=== PATIENT | male | born 1965 | race African-American/Black ===

== ENCOUNTER 2022-04-30 11:43 | Inpatient (IN) | payer OTHER ==
[2022-04-30 12:04] VITALS: BMI 29.9
[2022-04-30] MEDS ORDERED: NALOXONE HCL (KLOXXADO) 8 MG SPRAY NS PRN (13:18)
[2022-04-30] MEDS ORDERED: ONDANSETRON *ODT* 4 MG TABLET SL PRN (13:18)
[2022-04-30] MEDS ORDERED: IBUPROFEN 600 MG TABLET (FP) PO PRN (13:18)
[2022-04-30] MEDS ORDERED: hydrOXYzine PAMOATE 25 MG CAPSULE (FP) PO PRN (13:18)
[2022-04-30] MEDS ORDERED: DICYCLOMINE HCL 10 MG CAPSULE PO PRN (13:18)
[2022-04-30] MEDS ORDERED: POLYETHYLENE GLYCOL (HEALTHYLAX) 3350 17 GM PACKET PO PRN (13:18)
[2022-04-30] MEDS ORDERED: BISMUTH SUBSALICYLATE 524 MG/30 ML PO PRN (13:18)
[2022-04-30] MEDS ORDERED: ACETAMINOPHEN 325 MG TABLET (FP) PO PRN ×2 (13:18)
[2022-04-30] MEDS ORDERED: BENZOCAINE/MENTHOL (CHLORASEPTIC ) LOZENGE MM PRN (13:18)
[2022-04-30] MEDS ORDERED: cloNIDine HCL 0.1 MG TABLET PO PRN (13:18)
[2022-04-30] MEDS ORDERED: LOPERAMIDE HCL 2 MG CAPSULE PO PRN (13:18)
[2022-04-30] MEDS ORDERED: MAGNESIUM HYDROX 2400MG/30ML ORAL SUSPENSION 30 ML CUP PO PRN (13:18)
[2022-04-30] MEDS ORDERED: IBUPROFEN 400 MG TABLET (FP) PO PRN (13:18)
[2022-04-30] MEDS ORDERED: MAG HYDROX/AL HYDROX/SIMETH 30 ML UNIT-DOSE CUP PO PRN (13:18)
[2022-04-30] MEDS ORDERED: methaDONE HCL 10 MG TABLET (FOR DETOX USE ONLY) PO ONE ×2 (13:45→15:30)
[2022-04-30] MEDS: METHOCARBAMOL 500 MG TABLET PO PRN (14:57)
[2022-04-30] MEDS: PRENATAL VITAMINS W/ FOLIC ACID TABLET (FP) PO SCH (15:00)
[2022-04-30] MEDS: NICOTINE POLACRILEX 4 MG GUM BUC PRN (15:49)
[2022-04-30 17:17] LABS: ALBUMIN 3.7 g/dl (3.4-5.0); BLOOD UREA NITROGEN 20.5 mg/dL (7-18); CALCIUM 9.2 mg/dL (8.5-10.1)
[2022-04-30 17:20] LABS: CREATININE 1.3 mg/dL (0.55-1.3)
[2022-04-30 17:22] LABS: BILIRUBIN,TOTAL 0.3 mg/dL (0.2-1); TOT PROT 7.8 g/dl (6.4-8.2)
[2022-04-30 17:23] LABS: HEMATOCRIT 40.3 % (35.4-49); HEMOGLOBIN 12.7 GM/dL (11.7-16.9); MCH 23.9 pg (25.7-33.7); MCHC 31.6 g/dl (32.0-35.9); MEAN CELL VOLUME 75.8 fl (80-96); MEAN PLT VOLUME 9.9 fl (7.5-11.1); PLATELET COUNT 165 10^3/uL (134-434); RBC 5.32 M/mm3 (4.00-5.60); RDW 17.7 % (11.9-15.9); WHITE BLOOD COUNT 5.4 K/mm3 (4.0-10.0)
[2022-04-30] MEDS: MELATONIN 5 MG TABLETS PO SCH (22:26)
[2022-04-30] MEDS: THIAMINE HCL 100 MG TABLET (FP) PO SCH (22:26)
[2022-05-01] MEDS: PRENATAL VITAMINS W/ FOLIC ACID TABLET (FP) PO SCH (10:29)
[2022-05-01] MEDS: METHOCARBAMOL 500 MG TABLET PO PRN ×2 (10:30→22:27)
[2022-05-01] MEDS: NICOTINE POLACRILEX 4 MG GUM BUC PRN ×2 (11:58→22:28)
[2022-05-01] MEDS: NICOTINE 10 MG CARTRIDGE (INHALER) IH PRN (17:13)
[2022-05-01] MEDS: THIAMINE HCL 100 MG TABLET (FP) PO SCH (22:27)
[2022-05-01] MEDS: MELATONIN 5 MG TABLETS PO SCH (22:27)
[2022-05-02] MEDS ORDERED: methaDONE HCL 10 MG TABLET (FOR DETOX USE ONLY) PO ONE (10:00)
[2022-05-02] MEDS: PRENATAL VITAMINS W/ FOLIC ACID TABLET (FP) PO SCH (10:15)
[2022-05-02] MEDS: METHOCARBAMOL 500 MG TABLET PO PRN (10:17)
[2022-05-02] MEDS: NICOTINE POLACRILEX 4 MG GUM BUC PRN ×2 (10:20→21:36)
[2022-05-02] MEDS: MELATONIN 5 MG TABLETS PO SCH (22:19)
[2022-05-02] MEDS: THIAMINE HCL 100 MG TABLET (FP) PO SCH (22:19)
[2022-05-03] MEDS: PRENATAL VITAMINS W/ FOLIC ACID TABLET (FP) PO SCH (09:35)
[2022-05-03] MEDS: NICOTINE POLACRILEX 4 MG GUM BUC PRN ×3 (12:26→22:13)
[2022-05-03] MEDS: NICOTINE 10 MG CARTRIDGE (INHALER) IH PRN (18:33)
[2022-05-03] MEDS: MELATONIN 5 MG TABLETS PO SCH (22:13)
[2022-05-03] MEDS: THIAMINE HCL 100 MG TABLET (FP) PO SCH (22:13)
[2022-05-03] MEDS: METHOCARBAMOL 500 MG TABLET PO PRN (22:15)
[2022-05-04] MEDS: NICOTINE 10 MG CARTRIDGE (INHALER) IH PRN ×2 (08:27→12:51)
[2022-05-04] MEDS ORDERED: methaDONE HCL 10 MG TABLET (FOR DETOX USE ONLY) PO ONE (10:00)
[2022-05-04] MEDS: PRENATAL VITAMINS W/ FOLIC ACID TABLET (FP) PO SCH (10:11)
[2022-05-04] MEDS: METHOCARBAMOL 500 MG TABLET PO PRN ×2 (10:11→22:18)
[2022-05-04] MEDS: NICOTINE POLACRILEX 4 MG GUM BUC PRN ×3 (10:12→22:18)
[2022-05-04 20:57] VITALS: RESP 18
[2022-05-04] MEDS: THIAMINE HCL 100 MG TABLET (FP) PO SCH (22:16)
[2022-05-04] MEDS: MELATONIN 5 MG TABLETS PO SCH (22:16)
[2022-05-05 09:11] VITALS: BP 147/78; PULSE 74; TEMP 98.2
== END 2022-05-05 09:18 | disposition home or self-care (01) | DRG 897 ==
LOC: YASAS 11:43 → Y6N 14:33
PROVIDERS: ADMIT Allergy & Immunology; ATTEND Family Medicine
PROC: HZ2ZZZZ Detoxification Services for Substance Abuse Treatment (ICD-10-PCS; principal; 2022-04-30)
DX: F11.23 Opioid dependence with withdrawal (principal); F10.10 Alcohol abuse, uncomplicated; F17.210 Nicotine dependence, cigarettes, uncomplicated; F41.9 Anxiety disorder, unspecified; R73.03 Prediabetes; R79.89 Other specified abnormal findings of blood chemistry; Z88.0 Allergy status to penicillin
CPT/HCPCS: 36415; 80053; 85027; 86780; 93005; 93010; C9803-CS; U0003; U0005